=== PATIENT | male | born 1965 | race Caucasian/White ===

== ENCOUNTER → 2018-01-13 | Outpatient (CLI) | payer BC ==
[~2018-01-13] MED LIST: EPIN0.3P15 IM; PRAV20TA66 PO; PRED20TA6 PO; RANI-324 PO
--- NOTE | 2018-01-15 12:27 | RT HOLTER TEST ---
FACILITY: [facility] PATIENT NAME: SARAVANAN SPANN : [id number] MR: [id number]: [id number] EXAM DATE: ORDERING PHYSICIAN: JOSEFA WASSERMAN TECHNOLOGIST: Kelin Hook-up date: 2018-01-13 07:48:00 Duration: 47:59:00 Test Indications: Persistant Sinus [place] Medications: none [id number] QRS complexes 32 Ventricular ectopics which represent <1 % of total QRS comp. 39 Supraventricular ectopics which represent <1 % of total QRS comp. * Paced QRS complexes which represent % of total QRS comp. VENTRICULAR ECTOPY 32 Isolated 0 Bigeminal Cycles 0 Couplets 0 Runs 0 Beats in Runs * Beats LONGEST at * BPM at :: -- * Beats FASTEST at * BPM at :: -- SUPRAVENTRICULAR ECTOPY 35 Isolated 2 Couplets 0 Runs 0 Beats in Runs * Beats LONGEST at * BPM at :: -- * Beats FASTEST at * BPM at :: -- HEART RATES 36 MIN at 05:36:04 2018-01-14 65 AVG 146 MAX at 20:51:46 2018-01-14 LONGEST RR 1.712 secs at 05:46:41 2018-01-15 S-T LEVELS Channel 1 -12.800 mm MIN at 07:48:00 2018-01-13 -12.800 mm MAX at 07:48:00 2018-01-13 Channel 2 -12.800 mm MIN at 07:48:00 2018-01-13 -12.800 mm MAX at 07:48:00 2018-01-13 Channel 3 -12.800 mm MIN at 07:48:00 2018-01-1312.800 mm MAX at 07:48:00 2018-01-13 Rare ventricular ectopy. No couplets, triplets, or runs were noted. Rare supraventricular ectopy with a few couplets. No runs were recorded. Sinus bradycardia with lowest rate into 30s was noted during usual sleeping hours. No pauses of >2 seconds were recorded. Sinus tachycardia with rates into 140s was noted during usual waking hours. Confirmed by JERONIMO STERLING ([id number]) on 01/15/2018 12:26:13 PM Referred By: Overread By: JERONIMO STERLING
== END ==
LOC: RESP 01:20
PROVIDERS: ATTEND Physician Assistant
DX: R00.1 Bradycardia, unspecified (principal)
CPT/HCPCS: 93225